=== PATIENT | male | born 1955 | race Hispanic/Latino ===

== ENCOUNTER 2016-12-05 07:44 | Emergency (ER) | payer MEDICARE ==
[2016-12-05 07:45] VITALS: BMI 57.4
[2016-12-05 08:01] VITALS: RESP 18; TEMP 98.6
--- NOTE | 2016-12-05 08:06 | C.PDOC ---
History Of Present Illness 61M c/o epigastric "burning and pressure." he says he has had these sx for over a year assoc w vomiting after eating solids if he eats too fast. 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 he has been seeing a GI Dr Harmon who did an endoscopy last year and referred him to another specialist however he says he never went bc he did have transportation. Time Seen by Provider: 12/05/16 08:04 Chief Complaint (Nursing): Abdominal Pain Past Medical History Vital Signs: Last Vital Signs Temp 98.6 F 12/05/16 07:52 Pulse 87 12/05/16 07:52 Resp 18 12/05/16 07:52 BP 127/81 12/05/16 07:52 Pulse Ox 96 12/05/16 09:06 - Medical History PMH: Anxiety (NO MED), Arthritis, Depression, Peripheral Edema, Sleep Apnea ( USES C-PAP MACHINE ON & OFF) Denies: COPD (Pt denies), Diabetes, Hepatitis, HIV, HTN, Chronic Kidney Disease, Seizures, Sexually Transmitted Disease Surgical History: Endoscopy - [facility] Procedures GROUP PSYCHOTHERAPY (06/12/16) INDIVID PSYCHOTHERAP NEC (12/16/14) INDIVIDUAL PSYCHOTHERAPY, BEHAVIORAL (06/12/16) OTHER GROUP THERAPY (12/16/14) Family History: States: Other Other Family History: nc - Social History Hx Tobacco Use: Yes (heavy smoker) Hx Alcohol Use: No Hx Substance Use: No (Pt denies) - Immunization History Hx Tetanus Toxoid Vaccination: No Hx Influenza Vaccination: No Hx Pneumococcal Vaccination: No Review Of Systems Constitutional: Negative for: Fever, Chills Cardiovascular: Negative for: Chest Pain, Light Headedness Respiratory: Negative for: Cough, Shortness of Breath, Hemoptysis Gastrointestinal: Positive for: Nausea, Vomiting, Abdominal Pain. Negative for : Diarrhea, Melena, Hematochezia Genitourinary: Negative for: Dysuria Neurological: Negative for: Weakness, Numbness Psych: Negative for: Suicidal ideation, Other (HI) Physical Exam - Physical Exam Appears: Well, Non-toxic, No Acute Distress Skin: Warm, Dry Head: Atraumatic Nose: No Epistaxis Oral Mucosa: Moist Neck: Normal ROM Cardiovascular: Rhythm Regular Respiratory: No Decreased Breath Sounds, No Accessory Muscle Use, No Rales, No Rhonchi, No Stridor, No Wheezing Gastrointestinal/Abdominal: Soft, Tenderness (epigastric), No Distention, No Guarding, No Rebound Pulses: Left Radial: Normal, Right Radial: Normal Neurological/Psych: Oriented x3, Other (no focal deficits) ED Course And Treatment - Laboratory Results Result Diagrams: 12/05/16 09:08 07 09:08 O2 Sat by Pulse Oximetry: 96 (RA) Pulse Ox Interpretation: Normal - Radiology CXR: Interpreted by Me, Viewed By Me CXR Interpretation: Yes: No Acute Disease Medical Decision Making Medical Decision Making: ecg- nsr 77, LAFB, no acute ischemia cxr- nad 957am pt reports feeling better after meds. Disposition - Disposition Disposition: HOME/ ROUTINE Disposition Time: 09:58 Condition: IMPROVED - Clinical Impression Clinical Impression: Epigastric pain
[2016-12-05] MEDS ORDERED: Lidocaine 2% Viscous 100 ml PO STA (08:17)
[2016-12-05] MEDS ORDERED: Aluminum Hydroxide/Magnesium Hydroxide Susp (30 mL) PO STA (08:17)
[2016-12-05] MEDS ORDERED: Aluminum Hydroxide/Magnesium Hydroxide Susp (30 mL) ONE (08:23)
[2016-12-05 09:19] LABS: BASO # 0.1 K/uL (0.0-0.2); BASO % 0.7 % (0.0-2.0); EOS # 0.3 K/uL (0.0-0.7); EOS % 3.2 % (0.0-4.0); LYMPH # 2.5 K/uL (1.0-4.3); LYMPH % 30.1 % (20.0-40.0); MEAN CORPUSCULAR HEMOGLOBIN 29.4 pg (27.0-31.0); MEAN CORPUSCULAR HGB CONC 33.2 g/dL (33.0-37.0); MEAN PLATELET VOLUME 8.8 fL (7.2-11.7); MONO # 0.6 K/uL (0.0-0.8); MONO % 6.7 % (0.0-10.0); NEUT # 4.9 K/uL (1.8-7.0); NEUT % 59.3 % (50.0-75.0); NRBC % 0.1 % (0.0-2.0); RBC 5.73 Mil/uL (4.40-5.90); RED CELL DISTRIBUTION WIDTH 15.1 % (11.5-14.5); WHITE BLOOD COUNT 8.3 K/uL (4.8-10.8)
[2016-12-05 09:22] LABS: HEMOGLOBIN 16.8 g/dL (12.0-18.0); MEAN CELL VOLUME 88.5 fL (80.0-94.0)
[2016-12-05 09:32] LABS: ALBUMIN 3.6 g/dL (3.5-5.0)
[2016-12-05 09:35] LABS: AST/SGOT 15 U/L (17-59); GFR AFRICAN-AMERICAN > 60; GFR NON-AFRICAN AMERICAN > 60
[2016-12-05 09:36] LABS: ALB/GLOB RATIO 1.3 (1.0-2.1); ALT/SGPT 10 U/L (21-72); BLOOD UREA NITROGEN 11 mg/dL (9-20); CALCIUM 8.6 mg/dl (8.6-10.4); LIPASE 56 U/L (23-300)
--- NOTE | 2016-12-05 10:18 | RAD ---
HISTORY: cp COMPARISON: Chest radiograph dated 03/31/12 FINDINGS: LUNGS: No active pulmonary disease. PLEURA: No significant pleural effusion identified, no pneumothorax apparent. CARDIOVASCULAR: Normal. OSSEOUS STRUCTURES: No significant abnormalities. VISUALIZED UPPER ABDOMEN: Normal. OTHER FINDINGS: None. IMPRESSION: No active disease.
[2016-12-05 10:20] VITALS: BP 144/91; PULSE 74; O2SAT 98
--- NOTE | 2016-12-06 21:29 | CARD ---
APPROVED REPORT EKG Measurement Heart [id number] [place] [id number] <Conclusion> Normal sinus rhythm Left anterior fascicular block Septal infarct, age undetermined Abnormal ECG
== END 2016-12-05 10:22 | disposition home or self-care (01) ==
LOC: C.ER 07:44
DX: R10.13 Epigastric pain (principal)

== ENCOUNTER 2018-08-28 20:54 | Emergency (ER) | payer MEDICARE ==
[2018-08-28 20:54] VITALS: BMI 47.3
[2018-08-28 21:40] LABS: BASO # 0.1 K/uL (0.0-0.2); BASO % 0.8 % (0.0-2.0); EOS # 0.5 K/uL (0.0-0.7); EOS % 5.9 % (0.0-4.0); HEMOGLOBIN 15.3 g/dL (12.0-18.0); LYMPH # 2.8 K/uL (1.0-4.3); LYMPH % 31.7 % (20.0-40.0); MEAN CORPUSCULAR HEMOGLOBIN 28.6 pg (27.0-31.0); MEAN CORPUSCULAR HGB CONC 33.8 g/dL (33.0-37.0); MEAN PLATELET VOLUME 8.4 fL (7.2-11.7); MONO # 0.7 K/uL (0.0-0.8); MONO % 7.7 % (0.0-10.0); NEUT # 4.8 K/uL (1.8-7.0); NEUT % 53.9 % (50.0-75.0); RBC 5.34 Mil/uL (4.40-5.90); RED CELL DISTRIBUTION WIDTH 14.5 % (11.5-14.5); WHITE BLOOD COUNT 8.8 K/uL (4.8-10.8)
--- NOTE | 2018-08-28 21:40 | C.PDOC ---
History Of Present Illness 63 year old male with history of homelessness and alcoholism presents to the ED complaining of depression and suicidal ideation. Reports that ever since his suddenly in July 2018, he has had several episodes of depression. Two of these episodes required hospitalization. States that he was recently discharged from [facility] [place] [facility] and as soon as he left the hospital he started drinking. Notes he drinks up to 1 pint of alcohol per day and occasionally smokes marijuana. Patient has a prior history of alcohol abuse 12 years ago. Reports he wants to but he does not have a plan because he has no means. Denies any HI, shortness of breath, chest pain, fever, chills, or any physical compliants. Time Seen by Provider: 08/28/18 21:10 Chief Complaint (Nursing): Psychiatric Evaluation History Per: Patient History/Exam Limitations: no limitations Onset/Duration Of Symptoms: Days Current Symptoms Are (Timing): Still Present Suicide/Self Injury Attempted (Context): None Modifying Factor(s): Alcohol, Marijuana Associated Symptoms: Depression, Suicidal Thoughts. denies: Suicidal Plan Additional History Per: Prior Records Past Medical History Reviewed: Historical Data, Nursing Documentation, Vital Signs Vital Signs: Last Vital Signs Temp 97.8 F 08/28/18 21:08 Pulse 72 08/28/18 21:08 Resp 20 08/28/18 21:08 BP 141/71 08/28/18 21:08 Pulse Ox 95 08/28/18 21:08 - Medical History PMH: Anxiety, Arthritis, Depression, Peripheral Edema, Schizophrenia, Sleep Apnea Denies: COPD (Pt denies), Diabetes, Hepatitis, HIV, HTN, Chronic Kidney Disease, Seizures, Sexually Transmitted Disease Surgical History: Endoscopy - [facility] Procedures GROUP PSYCHOTHERAPY (07/18/18) INDIVID PSYCHOTHERAP NEC (12/16/14) INDIVIDUAL PSYCHOTHERAPY, BEHAVIORAL (06/12/16) INDIVIDUAL PSYCHOTHERAPY, COGNITIVE-BEHAVIORAL (07/18/18) OTHER GROUP THERAPY (12/16/14) Family History: States: No Known Family Hx - Social History Hx Tobacco Use: No Hx Alcohol Use: Yes Hx Substance Use: Yes - Immunization History Hx Tetanus Toxoid Vaccination: No Hx Influenza Vaccination: No Hx Pneumococcal Vaccination: No Review Of Systems Constitutional: Negative for: Fever, Chills Cardiovascular: Negative for: Chest Pain Respiratory: Negative for: Cough, Shortness of Breath Gastrointestinal: Negative for: Nausea, Vomiting, Abdominal Pain Musculoskeletal: Negative for: Back Pain Skin: Negative for: Rash Psych: Positive for: Depression, Suicidal ideation Physical Exam - Physical Exam Appears: Non-toxic, No Acute Distress, Other (morbidly obese ) Skin: Warm, Dry Head: Normacephalic Eye(s): bilateral: PERRL, EOMI Nose: Normal Oral Mucosa: Moist Neck: Supple Chest: Symmetrical Cardiovascular: Rhythm Regular Respiratory: Normal Breath Sounds, No Rales, No Rhonchi, No Wheezing Gastrointestinal/Abdominal: Soft, No Tenderness Neurological/Psych: Oriented x3, Normal Speech Gait: Steady ED Course And Treatment - Laboratory Results Result Diagrams: 08/28/18 21:33 08/28/18 21:33 Lab Interpretation: No Acute Changes O2 Sat by Pulse Oximetry: 95 (RA) Pulse Ox Interpretation: Normal Progress Note: Patient is medically cleared for psychiatric admission. Medical Decision Making Medical Decision Making: Plan - Bloodwork - UA - 1:1 Observation Disposition - Disposition Disposition Time: 01:00 Condition: STABLE - Clinical Impression Clinical Impression: Major depression, Suicidal ideation, Schizoaffective disorder - Scribe Statement The provider has reviewed the documentation as recorded by the Scribe Elisabet Farrell All medical record entries made by the Scribe were at my direction and personally dictated by me. I have reviewed the chart and agree that the record accurately reflects my personal performance of the history, physical exam, medical decision making, and the department course for this patient. I have also personally directed, reviewed, and agree with the discharge instructions and disposition. Physician Patient Turnover Patient Signed Over To: Maribel Johnson Handoff Comments: Pending discussion with psychiatrist from [place] for transfer to [facility]
[2018-08-28 21:43] LABS: MEAN CELL VOLUME 84.6 fL (80.0-94.0)
[2018-08-28 21:50] LABS: SQUAMOUS EPITHIAL 1 /hpf (0-5); URINE BACTERIA RARE (<OCC); URINE BILIRUBIN NEGATIVE (NEGATIVE); URINE BLOOD NEGATIVE (NEGATIVE); URINE CLARITY Clear (Clear); URINE COLOR Yellow (YELLOW); URINE GLUCOSE (UA) NORMAL (Normal); URINE LEUKOCYTE ESTERASE NEG Leu/uL (Negative); URINE PROTEIN NEGATIVE (NEGATIVE); URINE UROBILINOGEN NORMAL mg/dL (0.2-1.0)
[2018-08-28 21:57] LABS: BARBITURATES, UR NEGATIVE (NEGATIVE); BENZODIAZEPINES, UR NEGATIVE (NEGATIVE); OPIATES, UR NEGATIVE (NEGATIVE); PHENCYCLIDINE, UR NEGATIVE (NEGATIVE)
[2018-08-28 21:58] LABS: ALB/GLOB RATIO 1.5 (1.0-2.1); ALBUMIN 3.8 g/dL (3.5-5.0); ALT/SGPT 8 U/L (21-72); AST/SGOT 21 U/L (17-59); BLOOD UREA NITROGEN 9 mg/dL (9-20); CALCIUM 9.5 mg/dl (8.6-10.4); GFR NON-AFRICAN AMERICAN > 60
[2018-08-29 05:47] VITALS: O2SAT 95
[2018-08-29 06:58] VITALS: BP 126/73; PULSE 73; RESP 20; TEMP 98.5
--- NOTE | 2018-08-30 11:14 | CARD ---
APPROVED REPORT Date of service: 08/29/2018 EKG Measurement Heart [id number] MD [id number] <Conclusion> Sinus rhythm with 1st degree AV block Left anterior fascicular block Abnormal ECG
== END 2018-08-29 07:52 | disposition short-term general hospital (02) ==
LOC: C.ER 20:54
DX: F32.9 Major depressive disorder, single episode, unspecified (principal); R45.851 Suicidal ideations; F25.9 Schizoaffective disorder, unspecified
CPT/HCPCS: 80053; 81001; 83735; 84100; 85025; 93005; 99285; G0480